=== PATIENT | male | born 1990 | race Two or more races ===

== ENCOUNTER 2019-06-11 21:53 | Emergency (ER) | payer MEDICAID ==
[~2019-06-11] VITALS: Ht 182.9 cm; Wt 105.7 kg
[2019-06-11 22:22] VITALS: BP 144/71
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
--- NOTE | 2019-06-11 22:36 | NUR ---
RADIOLOGY AT BEDSIDE FOR XRAY
[2019-06-11] MEDS ORDERED: HYDROCODONE/APAP 5/325MG 1 EACH TABLET ONE (22:46)
[2019-06-11] MEDS ORDERED: HYDROCODONE/APAP 5/325MG 1 EACH TABLET PO ONE (23:00)
--- NOTE | 2019-06-11 23:02 | NUR ---
RADIOLOGY AT BEDSIDE FOR XRAY
== END 2019-06-11 23:48 | disposition home or self-care (01) ==
LOC: ER 21:57
DX: M25.552 Pain in left hip (principal); M79.672 Pain in left foot
CPT/HCPCS: 73502; 73630-TC

== ENCOUNTER 2019-10-22 22:44 | Emergency (ER) | payer MEDICAID, OTHER ==
[~2019-10-22] VITALS: Ht 182.9 cm; Wt 89.8 kg
--- NOTE | 2019-10-22 23:28 | NUR ---
BIBS FROM HOME TO ER BED 4. AAOX4. NO RESP DISTRESS NOTED. AMBULATORY WITH LIMP AND USING A CANE. C/O BACK PAIN EXTENDING TO HIP AND SHOOTING DOWN THE LEFT LEG. PT REPORTS THAT HE WAS SHOVELING DIRT EARLIER AND HIS BACK LOCKED UP. TENDERNESS UPON PALPATION NOTED ON L GLUTEAL AREA. MD WAS AT BEDSIDE FOR EVAL. ORDERS RECEIVED, NOTED AND WILL CARRY ORDERS.
[2019-10-22] MEDS ORDERED: CARISOPRODOL 350 MG TABLET PO ONE (23:30)
[2019-10-22] MEDS ORDERED: DEXAMETHASONE SOD PHOSPHATE 4 MG/ML VIAL IM ONE (23:30)
[2019-10-22] MEDS ORDERED: HYDROMORPHONE 1 MG/1 ML DISP.SYRIN IM ONE (23:30)
[2019-10-22] MEDS ORDERED: DEXAMETHASONE SOD PHOSPHATE 10 MG/ML VIAL ONE (23:34)
[2019-10-22] MEDS ORDERED: HYDROMORPHONE 1 MG/1 ML DISP.SYRIN ONE (23:35)
[2019-10-22] MEDS ORDERED: CARISOPRODOL 350 MG TABLET ONE (23:35)
--- NOTE | 2019-10-22 23:49 | NUR ---
XRAY AT BEDSIDE
--- NOTE | 2019-10-23 01:00 | NUR ---
Patient discharged to home in stable condition. Written and verbal after care instructions given. Patient verbalizes understanding of instruction. Pt ambulatory with a steady gait
[2019-10-23 01:02] VITALS: BP 125/65
== END 2019-10-23 01:02 | disposition home or self-care (01) ==
LOC: ER 22:44
DX: R25.2 Cramp and spasm (principal); M54.30 Sciatica, unspecified side; M25.552 Pain in left hip
CPT/HCPCS: 73503; 96372 ×2; 99283; J1100; J1170; 73502

== ENCOUNTER 2023-05-06 19:06 | Emergency (ER) | payer MEDICAID, OTHER ==
[~2023-05-06] VITALS: Ht 182.9 cm; Wt 120.2 kg
[2023-05-06] MEDS ORDERED: BUPRENORPHINE HCL 2 MG TAB.SUBL SL ONE ×2 (19:50→20:00)
[2023-05-06 20:32] VITALS: BP 110/64; TEMP 97.9; O2SAT 98
== END 2023-05-06 20:25 ==
LOC: ER 19:33
DX: R42 Dizziness and giddiness (principal); J45.909 Unspecified asthma, uncomplicated

== ENCOUNTER 2025-04-14 17:13 | Emergency (ER) | payer OTHER ==
[~2025-04-14] VITALS: Ht 180.3 cm; Wt 79.4 kg
[2025-04-14 17:21] VITALS: TEMP 98.5
[2025-04-14 18:41] LABS: APPEARANCE,URINE SLIGHTLY CLOUDY (CLEAR); BLOOD, URINE TRACE-INTA Ery/uL (NEGATIVE); LEUKOCYTE ESTERASE ,URINE 1+ (NEGATIVE); NITRITE, URINE NEGATIVE (NEGATIVE); UGLUCOSE NEGATIVE (NEGATIVE)
[2025-04-14 18:57] LABS: ADD URINE CULTURE YES; SQUAMOUS EPITHELIAL CELL,UR None Seen /HPF (None Seen)
[2025-04-14] MEDS ORDERED: AMOX-430 PO (19:07)
[2025-04-14] MEDS ORDERED: LIDOCAINE /MPF 1% VIAL 5 ML VIAL ONE (19:24)
[2025-04-14] MEDS ORDERED: CEFTRIAXONE 1 G VIAL ONE (19:24)
[2025-04-14] MEDS: CEFTRIAXONE 1 G VIAL IM ONE (19:30)
[2025-04-14 19:34] VITALS: BP 108/72; O2SAT 98
== END 2025-04-14 19:35 | disposition home or self-care (01) ==
LOC: ER 17:19
DX: N39.0 Urinary tract infection, site not specified (principal); J45.909 Unspecified asthma, uncomplicated
CPT/HCPCS: 99283; 96372; 87086; 81001; J0696; J3490